=== PATIENT | female | born 1940 | race Caucasian/White ===

== ENCOUNTER 2021-01-01 09:26 | Emergency (ER) | payer OTHER, SELFPAY ==
[2021-01-01] VITALS (41 sets, daily range): BP systolic 102–137; BP diastolic 58–84; PULSE 53–81; RESP 12–26; TEMP 36.5; O2SAT 96–100
--- NOTE | 2021-01-01 09:15 | RT.EKG_ITS ---
APPROVED REPORT Exam: Resting ECG Reason for Exam: possible afib Patient Location: E HR:65 bpm ECG Measurements Heart Rate 65 AXIS [place] [id number] P [id number] QRSd 91 QRS 45 QT 451 T 60 QTc 470 Conclusion Atrial fibrillation...? atrial activity Low voltage, extremity leads...all extremity leads <0.5mV Consider anterior infarct...Q >30mS in V2-V5 No STEMI. I have reviewed and interpreted ECG and agree with software generated interpretation.
--- NOTE | 2021-01-01 09:38 | ED.GENADUL_ITS ---
Discharge Plan Disposition Patient Disposition: HOME Condition: Improving Discharge Details Clinical Impression: Palpitations, Atrial fibrillation, Syncope Primary Care Provider: Unknown,Unknown ED Provider: Aishwarya Ornelas Home Meds and New Rx's Prescriptions: Continued metoprolol tartrate 25 mg Tablet 25 mg PO PRN PRNRF: 0 cholecalciferol (vitamin D3) [Vitamin D3] 25 mcg (1,000 unit) Capsule 1,000 unit PO DAILY RF: 0 cyanocobalamin (vitamin B-12) 1,000 mcg/mL Kit 1,000 mcg subcut Q1-2M RF: 0 Discharge Instructions Instructions: A-fib (Atrial Fibrillation) (ED), Syncope (ED) Additional Instructions: Drink plenty of fluids and get plenty of rest. As for now, continue your metoprolol as needed and directed for symptoms of palpitations. Start with a 1/2 tab as needed and then you can take a second 1/2 tab if your palpitations continue. Follow-up with your upcoming scheduled appointment with your primary care doctor for reevaluation and placement of an outpatient 14 or 30-day awake overnight monitor for further evaluation of your palpitations. It is also recommended to follow-up with cardiology for further evaluation of your palpitations. Your primary care doctor usually will have to send a referral to a cardiology group for this appointment. Return to the emergency department with any worsening or new concerning symptoms. Discharge Data Discharge Physician: Aishwarya Ornelas Medical Decision Making 2480 -- 80-year-old female with a history of palpitations treated intermittently with metoprolol, vertigo, migraines, irritable bowel syndrome presents for palpitations followed by syncopal episode today at home. EKG on arrival notes a rate of 65, atrial fibrillation. Her vitals on arrival are within normal limits. Her blood pressure is 125/78, her heart rate is 65. She appears comfortable and nontoxic. She has no focal deficits. I discussed at length with patient that it appears most likely the combination of her metoprolol, bowel movement x2, and standing quickly after defecation likely caused her syncopal episode. Considering her complaint of shortness of breath with syncope, will obtain CT chest to rule out PE. Will check screening labs and continue IV fluids. 1050 -- Labs and imaging reviewed and unremarkable. CT chest notes her chronic granulomatous disease with question of superimposed infection, however patient denies any cough, fever and has normal white blood cell count so do not suspect pneumonia. Patient reassessed and she states she feels great and feels good to go home. We will plan for repeat troponin and EKG. we will consult [facility] cardiology for any recommendations for starting preventative metoprolol or whether to continue with as needed dosing. 1400 -- Repeat troponin negative. Repeat EKG now notes patient is in sinus with a normal rate. Patient feels much better and feels good to go home. She was able to ambulate without any symptoms of dizziness or shortness of breath. Still awaiting discussion with [facility] cardiology as they are experiencing high-volume calls and acuity at this time. Patient would rather go home at this time and I will contact her regarding cardiology recommendations. She is advised to continue her metoprolol as needed for palpitations. She has an upcoming appoint with her primary care doctor and is advised to discuss placement of an outpatient 14 or 30-day awake overnight monitor. Usual and customary return precautions given prior to discharge. 1545 -- After pt discharge.... Discussed with [facility] cardiology who agreed with holding on starting daily rate control medication until obtaining the outpatient awake overnight monitor as it is unclear if patient was actually tachycardic with atrial fibrillation. Agree with plan for 14 or 30-day Zio patch. Also mentioned considering the initiation of anticoagulation but patient can speak to her primary care doctor about the risk vs benefit ratio this week. Patient was called at home and these recommendations were discussed. She has a follow-up appointment with her primary care doctor in 3 days. Insert return precautions Medical Records Medical records reviewed: Yes I reviewed the patient's medical records. Imaging Data Radiologic Study: Radiologist's impression: CTA Chest With Contrast Exam date and time: 01/01/2021 10:26 AM Age: 80 years old Clinical indication: Shortness of breath and other: R/O pneumonia TECHNIQUE: Imaging protocol: Computed tomographic angiography of the chest with contrast. 3D rendering (Not supervised by radiologist): MIP and/or 3D reconstructed images were created by the technologist. Contrast material: OMNIPAQUE 350; Contrast volume: 70 ml; Contrast route: INTRAVENOUS (IV); COMPARISON: No relevant images were readily available for comparison purposes. FINDINGS: Pulmonary arteries: Normal caliber main pulmonary artery. No convincing evidence of pulmonary embolus. Aorta: normal caliber aorta. Lungs: Clear central airways. Atelectasis and/or scarring bilaterally. right middle lobe pulmonary nodule image 34 series 4 measuring up to 7 mm. Surgical changes right lower lobe. Pleural spaces: small to moderate right-sided pleural effusion. Heart: Heart somewhat prominent however this could be at least partly related to phase of respiration. Mediastinal space: Granulomatous changes of the jeanine and mediastinum. Surgical clips mediastinum. Lymph nodes: No suspicious lymphadenopathy. Bones/joints: no acute fracture or dislocation. bony degenerative changes. Soft tissues: Unremarkable superficial soft tissues. IMPRESSION: There is small to moderate right-sided pleural effusion with scattered areas of atelectasis and/or scarring present. Superimposed infection of atelectatic lung not excluded and possible in the appropriate clinical setting. Right middle lobe pulmonary nodule. Follow-up 6-12 months. Lab Data Lab results reviewed: Yes I reviewed the patient's lab results. Labs: Laboratory Tests Range/Units 01/01/21 01/01/21 01/01/21 09:45 09:45 09:45 WBC (4.4-10.8) 10^3/uL 7.20 RBC (3.93-5.22) 10^6/uL 4.44 Hgb (11.2-15.7) g/dL 13.2 Hct (36.0-46.0) % 40.4 MCV (80-95) fL 91.0 MCH (27.0-33.0) pg 29.7 MCHC (32.0-36.0) % 32.7 RDW (11.7-14.6) % 12.4 Plt Count (130-400) 10^3/uL 210 MPV (8.0-11.0) fL 10.0 Immature Gran % 0.3 Neutrophils % 83.4 Lymphocytes % 10.4 Monocytes % 4.9 Eosinophils % 0.6 Basophils % 0.4 Nucleated RBC % % 0 Absolute Neutrophils (1.2-6.7) 10^3/uL 6.01 Absolute Lymphocytes (1.2-3.4) 10^3/uL 0.75 L Absolute Monocytes (0.1-0.8) 10^3/uL 0.35 Absolute Eosinophils (0.0-0.7) 10^3/uL 0.04 Absolute Basophils (0.0-0.2) 10^3/uL 0.03 PT (9.3-11.0) sec 10.2 INR (0.9-1.1) 1.0 APTT (21.0-27.5) sec 22.5 Sodium (136-145) mmol/L 144 Potassium (3.5-5.1) mmol/L 4.5 Chloride (98-107) mmol/L 108 H Carbon Dioxide (21.0-32.0) mmol/L 28.3 Anion Gap (3-11) mmol/L 7.7 BUN (7-18) mg/dL 17 Creatinine (0.55-1.02) mg/dL 0.7 Estimated GFR/1.73 m2 (mL/min/1.73m2) >= 60.00 Glucose (74-106) mg/dL 151 H Calcium (8.5-10.1) mg/dL 8.3 L Magnesium (1.8-2.4) mg/dL 1.9 Total Bilirubin (0.2-1.0) mg/dL 0.8 AST (15-37) U/L 28 ALT (14-59) U/L 36 Alkaline Phosphatase (46-116) U/L 83 Troponin I (<0.06) ng/mL < 0.05 Total Protein (6.4-8.2) g/dL 6.4 Albumin (3.4-5.0) g/dL 3.5 Range/Units 01/01/21 12:48 WBC (4.4-10.8) 10^3/uL RBC (3.93-5.22) 10^6/uL Hgb (11.2-15.7) g/dL Hct (36.0-46.0) % MCV (80-95) fL MCH (27.0-33.0) pg MCHC (32.0-36.0) % RDW (11.7-14.6) % Plt Count (130-400) 10^3/uL MPV (8.0-11.0) fL Immature Gran % Neutrophils % Lymphocytes % Monocytes % Eosinophils % Basophils % Nucleated RBC % % Absolute Neutrophils (1.2-6.7) 10^3/uL Absolute Lymphocytes (1.2-3.4) 10^3/uL Absolute Monocytes (0.1-0.8) 10^3/uL Absolute Eosinophils (0.0-0.7) 10^3/uL Absolute Basophils (0.0-0.2) 10^3/uL PT (9.3-11.0) sec INR (0.9-1.1) APTT (21.0-27.5) sec Sodium (136-145) mmol/L Potassium (3.5-5.1) mmol/L Chloride (98-107) mmol/L Carbon Dioxide (21.0-32.0) mmol/L Anion Gap (3-11) mmol/L BUN (7-18) mg/dL Creatinine (0.55-1.02) mg/dL Estimated GFR/1.73 m2 (mL/min/1.73m2) Glucose (74-106) mg/dL Calcium (8.5-10.1) mg/dL Magnesium (1.8-2.4) mg/dL Total Bilirubin (0.2-1.0) mg/dL AST (15-37) U/L ALT (14-59) U/L Alkaline Phosphatase (46-116) U/L Troponin I (<0.06) ng/mL < 0.05 Total Protein (6.4-8.2) g/dL Albumin (3.4-5.0) g/dL ECG Data Attestation: I personally reviewed and interpreted this ECG (s) as follows: Interpretation: #1 -- Rate of 65, atrial fibrillation, no STEMI, nondiagnostic. #2 --rate of 67, sinus, prolonged RI at 233. QTc 448. No STEMI. HPI General Mode of arrival: EMS . Date/Time Provider Initiated Documentation: 01/01/21 09:37 . Limitations to Documentation: no limitations . Information obtained by: patient and family . HPI Narrative: Patient is an 80-year-old female with a history of palpitations treated intermittently with metoprolol, vertigo, migraine, irritable bowel syndrome presents for palpitations since this morning followed by syncopal episode. Patient states she went to bed last night feeling fine and then awoke at 6 AM with palpitations and shortness of breath. She states she then stood up and felt dizzy and ambulated to the bathroom and had a large normal formed brown bowel movement. She states she then ambulated back to her bed and still felt palpitations and took 1 tab of 25 mg metoprolol. She states she then got up to have a large bowel movement again and upon standing up from the toilet became dizzy. She then was helped to the couch by her daughter who states she then had a syncopal episode. Daughter states she felt that she was unable to feel a pulse and thought patient wasn't breathing so then pushing her chest twice and patient immediately pushed her away. Daughter states she feels most likely patient did have a pulse but she was unable to palpate it. Patient admits to some mild dizziness and headache at this time otherwise denies any blurry vision, chest pain, shortness of breath, nausea, vomiting or abdominal pain. Patient states she has been taking metoprolol as needed for palpitations for the past 10 years. She states since August she has been taking it every few weeks for palpitations. She states the episode today lasted longer than usual and appeared more intense that she took 1 full tab of the 25 mg instead of the usual half tab. She states she has never been diagnosed with atrial fibrillation. She denies any recent illness. Patient is usually treated at [facility] but is staying nearby at her son's camp. Related Data Home Medications Medication Instructions Recorded Confirmed cholecalciferol (vitamin D3) 1,000 unit PO DAILY 01/01/21 01/01/21 [Vitamin D3] cyanocobalamin (vitamin B-12) 1,000 mcg SUBCUT Q1-2M 01/01/21 01/01/21 metoprolol tartrate 25 mg PO PRN PRN 01/01/21 01/01/21 Allergies Allergy/AdvReac Type Severity Reaction Status Date / Time codeine AdvReac Mild Other (See Unverified 01/01/21 09:39 Comment) General Stated Complaint: Palpitatns PRINCE: 3 Review of Systems All systems reviewed & are unremarkable except as noted in HPI and below Constitutional Constitutional: Reports as per HPI, Denies chills and Denies fever(s) Eyes Eyes: Denies blurry vision ENT Ears, Nose, Mouth, and Throat: Reports dizziness, Denies sore throat and Denies throat swelling Cardiovascular Cardiovascular: Denies chest pain, Reports syncope and Reports dyspnea Respiratory Respiratory: Denies cough and Reports dyspnea Gastrointestinal Gastrointestinal: Denies abdominal pain, Denies diarrhea and Denies vomiting Genitourinary Genitourinary: Denies hematuria and Denies dysuria Musculoskeletal Musculoskeletal: Denies back pain and Denies numbness Integumentary/Breasts Skin/Breast: Denies lesions and Denies rash Neurologic Neurologic: Reports dizziness, Reports syncope, Denies localized weakness and Denies numbness Allergic/Immunologic Allergic/Immunologic: Denies throat swelling [facility] Medical History (Updated 01/01/21 @ 14:15 by Aishwarya Ornelas DO) Granulomatous lung disease History of IBS Migraine MVP (mitral valve prolapse) Vertigo Surgical History (Updated 01/01/21 @ 10:51 by Aishwarya Ornelas DO) History of lung biopsy Social History Smoking/Tobacco Use Status: Former Tobacco Use Smoking risk assessment performed?: Yes Alcohol Intake: former Drug use: Never Substance use type: does not use Do you feel safe at home: Yes Do you feel safe in your relationship?: Yes Exam Const General: cooperative and no acute distress HENMT Head: normal to inspection Face and sinus: normal facial exam Eyes General: appearance normal, both eyes and all related structures Pupils: PERRL EOM: EOM intact bilaterally Neck Neck: normal visual inspection and No submandibular swelling Lymphatic: no lymphadenopathy noted Chest Chest: normal inspection of the chest and no tenderness Resp Effort & Inspection: normal respiratory effort and able to speak in complete se ntences Auscultation: clear to auscultation bilaterally Cardio Rate: regular rate Rhythm: regular rhythm GI Inspection: normal to inspection Palpation: soft, not firm, not rigid and nontender Auscultation: normal bowel sounds Skin General skin exam: no rashes or lesions noted Neuro General: patient alert, patient awake, patient oriented x3, moves all extremities, no meningeal signs and no focal motor deficits Cranial Nerves: CN's II-XI intact bilaterally Cognition: normal cognition Speech: speech normal Motor: muscle tone normal throughout and strength 5/5 throughout Sensory Exam: no sensory deficits noted Extrem General: normal to inspection, full ROM, capillary refill normal, no calf tenderness bilaterally and no edema Psych Appearance: grossly normal Mental Status: mental status grossly normal Speech and Movement: speech and movement normal Affect: normal affect Course Vital Signs Vital signs: Vital Signs Temperature 97.7 F 01/01/21 09:31 Pulse 65 01/01/21 09:31 Respiratory Rate 16 01/01/21 09:31 Blood Pressure 125/78 01/01/21 09:31 Pulse Oximetry 98 01/01/21 09:31 Temperature 97.7 F 01/01/21 09:31 Temperature Source Temporal Artery Scan 01/01/21 09:31 Pulse 65 01/01/21 09:31 Respiratory Rate 16 01/01/21 09:31 Blood Pressure 125/78 01/01/21 09:31 Blood Pressure Position Supine 01/01/21 09:31 Pulse Oximetry 98 01/01/21 09:31 Oxygen Delivery Method Room Air 01/01/21 09:31 Oxygen Flow Rate 0 01/01/21 09:31
[2021-01-01 09:55] LABS: Abs Immature Grans 0.02 10^3/uL (0.0-0.06); Absolute Basophil Count 0.03 10^3/uL (0.0-0.2); Absolute Eosinophil Count 0.04 10^3/uL (0.0-0.7); Absolute Lymphocyte Count 0.75 10^3/uL (1.2-3.4); Absolute Monocyte Count 0.35 10^3/uL (0.1-0.8); Absolute Neutrophil Count 6.01 10^3/uL (1.2-6.7); Basophils % 0.4; Eosinophils % 0.6; HCT 40.4 % (36.0-46.0); HGB 13.2 g/dL (11.2-15.7); Immature Grans % 0.3; Lymphocytes % 10.4; MCH 29.7 pg (27.0-33.0); MCHC 32.7 % (32.0-36.0); Monocytes % 4.9; Neutrophils % 83.4; Nucleated RBC 0 %; Platelet Count 210 10^3/uL (130-400); RBC 4.44 10^6/uL (3.93-5.22); RDW 12.4 % (11.7-14.6); RDW-SD 41.4 fL
[2021-01-01 10:10] LABS: PTT Activated 22.5 sec (21.0-27.5); Prothrombin Time 10.2 sec (9.3-11.0)
[2021-01-01 10:12] LABS: ALT 36 U/L (14-59); AST 28 U/L (15-37); Albumin 3.5 g/dL (3.4-5.0); Alkaline Phosphatase 83 U/L (46-116); Anion Gap 7.7 mmol/L (3-11); BUN 17 mg/dL (7-18); Bilirubin, Total 0.8 mg/dL (0.2-1.0); CO2 28.3 mmol/L (21.0-32.0); CREATININE 0.7 mg/dL (0.55-1.02); Calcium 8.3 mg/dL (8.5-10.1); Chloride 108 mmol/L (98-107); Glucose 151 mg/dL (74-106); Magnesium 1.9 mg/dL (1.8-2.4); Potassium 4.5 mmol/L (3.5-5.1); Sodium 144 mmol/L (136-145); Total Protein 6.4 g/dL (6.4-8.2)
[2021-01-01 10:13] LABS: Troponin I < 0.05 ng/mL (<0.06)
--- NOTE | 2021-01-01 10:15 | DI.CT_ITS ---
Exam(s) CT CHEST PE CTA EXAM: CT CHEST PE CTA CLINICAL HISTORY: syncope, sob, r/o PE, pneumonia. TECHNIQUE: Imaging Protocol: Axial CT angiography was performed with multi-slice acquisition and mu lti-planar and/or 3D reconstructions. CONTRAST MATERIAL: Intravenous: Omnipaque 350 Contrast volume:70 mL COMPARISON: No exams were available for comparison FINDINGS: Tracheobronchial tree: Patent where visualized. Pulmonary parenchyma: Bilateral scarring or atelectasis seen in the lungs. No architectural distorti on. There is a 7 mm pulmonary nodule in the right middle lobe. (Series 5, image 326). Pulmonary Arteries: No evidence of filling defect to suggest pulmonary emboli. Mediastinum and Leonor: No dominant adenopathy or fluid collection. Calcified lymph nodes are seen in t he mediastinum suggesting prior granulomatous disease. Visualized thyroid gland: Unremarkable. Pleura: There is a moderate right pleural effusion. There is a tiny left pleural effusion. No pneum othorax. Pleural calcifications are present. This may represent prior exposure to asbestos. Heart: The heart is not dilated. No coronary artery calcifications are seen. No pericardial effusion. Aorta: Thoracic aorta non-dilated. Mild atherosclerosis. Upper abdomen: Unremarkable. Soft tissues: Unremarkable. Bones: Normal. IMPRESSION: 1. No evidence of pulmonary embolism or thoracic aortic aneurysm. 2. Moderate right pleural effusion. 3. Mm pulmonary nodule in the right middle lobe. Follow-up is recommended in 6-12 months. Incidental Findings RADIATION DOSE DELIVERED: 273.67mGy.cm Total DLP DATA REPOSITORY: All CT scans at this facility are submitted to the National Radiology Data Registry (NRDR) Dose Index Registry (DIR) with the [employer] (ACR). RADIATION OPTIMIZATION: All CT scans at this facility use at least one of these dose optimization te chniques: automated exposure control; mA and/or kV adjustment per patient size (includes targeted exa ms where dose is matched to clinical indication); or iterative reconstruction.
[2021-01-01] MEDS: Omnipaque 350 MG/ML 100 ML BTL 70 ML IJ (11:17)
[2021-01-01] MEDS: Normal Saline - Diluent 50 ML VIAL IV (11:18)
[2021-01-01] MEDS: Normal Saline Flush 10 ML SYR IVP (11:19)
[2021-01-01] MEDS: Normal Saline 250 ML 500 ML IV ×2 (11:35→12:05)
--- NOTE | 2021-01-01 11:41 | DI.VRAD_ITS ---
PROCEDURE INFORMATION: Exam: CTA Chest With Contrast Exam date and time: 01/01/2021 10:26 AM Age: 80 years old Clinical indication: Shortness of breath and other: R/O pneumonia TECHNIQUE: Imaging protocol: Computed tomographic angiography of the chest with contrast. 3D rendering (Not supervised by radiologist): MIP and/or 3D reconstructed images were created by the technologist. Contrast material: OMNIPAQUE 350; Contrast volume: 70 ml; Contrast route: INTRAVENOUS (IV); COMPARISON: No relevant images were readily available for comparison purposes. FINDINGS: Pulmonary arteries: Normal caliber main pulmonary artery. No convincing evidence of pulmonary embolus. Aorta: normal caliber aorta. Lungs: Clear central airways. Atelectasis and/or scarring bilaterally. right middle lobe pulmonary nodule image 34 series 4 measuring up to 7 mm. Surgical changes right lower lobe. Pleural spaces: small to moderate right-sided pleural effusion. Heart: Heart somewhat prominent however this could be at least partly related to phase of respiration. Mediastinal space: Granulomatous changes of the jeanine and mediastinum. Surgical clips mediastinum. Lymph nodes: No suspicious lymphadenopathy. Bones/joints: no acute fracture or dislocation. bony degenerative changes. Soft tissues: Unremarkable superficial soft tissues. IMPRESSION: There is small to moderate right-sided pleural effusion with scattered areas of atelectasis and/or scarring present. Superimposed infection of atelectatic lung not excluded and possible in the appropriate clinical setting. Right middle lobe pulmonary nodule. Follow-up 6-12 months. Dictated and Authenticated by: Benji Bland MD. Ordering:RAPHAEL Neff MD
--- NOTE | 2021-01-01 11:45 | RT.EKG_ITS ---
APPROVED REPORT Exam: Resting ECG Reason for Exam: shortness of breath Patient Location: E HR:67 bpm ECG Measurements Heart Rate 67 AXIS CO 233 P 90 QRSd 86 QRS 26 QT 424 T 58 QTc 448 Conclusion Sinus rhythm...normal P axis, V-rate 60- 99 Prolonged CO interval...CO >220, V-rate 50- 90 Low voltage, extremity leads...all extremity leads <0.5mV I have reviewed and interpreted ECG and agree with software generated interpretation.
[2021-01-01 13:22] LABS: Troponin I < 0.05 ng/mL (<0.06)
== END 2021-01-01 14:29 | disposition home or self-care (01) ==
PROVIDERS: Emergency Provider Physician Assistant
DX: R00.2 Palpitations (principal); I48.91 Unspecified atrial fibrillation; R55 Syncope and collapse
CPT/HCPCS: 36415; 71275; 80053; 93005; 96360; 99285; 83735; 84484; 85025; 85610; 85730; 93010; J3490